=== PATIENT | male | born 1940 | race Caucasian/White ===

== ENCOUNTER 2023-11-19 09:02 | Emergency (ER) | payer MEDICARE, MEDICAID ==
[~2023-11-19] VITALS: Ht 160 cm; Wt 77.0 kg
[2023-11-19 09:13] VITALS: O2SAT 100
[2023-11-19 09:27] VITALS: BP 134/100; PULSE 84; RESP 16; TEMP 98; O2SAT 100
[2023-11-19 10:23] LABS: BASOPHILS % 0.8 % (0.0-2.0); EOSINOPHILS % 2.6 % (0.0-5.0); HEMATOCRIT. 43.9 % (42.0-52.0); HEMOGLOBIN. 14.7 g/dL (14.0-18.0); LYMPHOCYTES % 26.7 % (20.0-50.0); MEAN CORPUSCULAR HGB CONC 33.4 g/dL (31.0-37.0); MEAN CORPUSCULAR VOLUME 89.8 fL (80.0-94.0); MEAN PLATELET VOLUME 8.8 fl (7.4-10.4); MONOCYTES % 8.8 % (2.0-8.0); NEUTROPHILS % 61.1 % (40.0-76.0); PLATELET 243 x1000/uL (130-400); RED BLOOD CELL COUNT 4.89 mill/uL (4.7-6.1); WHITE BLOOD COUNT 7.9 x1000/uL (4.5-11.0)
[2023-11-19 10:38] LABS: CHLORIDE 108 mEq/L (98-107); POTASSIUM 3.8 mEq/L (3.5-5.1); SODIUM 142 mEq/L (136-145)
[2023-11-19 10:39] LABS: CALCIUM 9.5 mg/dL (8.7-10.4); CARBON DIOXIDE 26 mEq/L (21-32)
[2023-11-19 10:44] LABS: CREATININE 0.9 mg/dL (0.6-1.3); GLUCOSE 96 mg/dL (70-105); UREA NITROGEN BLOOD 14 mg/dL (9-23)
[2023-11-19 12:15] LABS: CLARITY URINE CLEAR (CLEAR); COLOR URINE RED (YELLOW); GLUCOSE URINE NEGATIVE (NEGATIVE); KETONES URINE NEGATIVE (NEGATIVE); LEUKOCYTE ESTERASE URINE NEGATIVE (NEGATIVE); NITRITE URINE NEGATIVE (NEGATIVE); OCCULT BLOOD URINE 3+ (NEGATIVE); PROTEIN URINE NEGATIVE (NEGATIVE); SPECIFIC GRAVITY URINE 1.009 (1.005-1.030); UROBILINOGEN URINE 0.2 E.U./dL (0.2-1.0)
[2023-11-19 12:34] LABS: RBC URINE TNTC /hpf (0-2); SQUAMOUS EPITHELIAL CELL URINE RARE /lpf (RARE/1+); WBC URINE 0-2 /hpf (0-2)
[2023-11-19 12:35] LABS: BACTERIA URINE TRACE
== END 2023-11-19 21:29 | disposition home or self-care (01) ==
LOC: ER 09:02
DX: R31.9 Hematuria, unspecified (principal); I10 Essential (primary) hypertension; E78.00 Pure hypercholesterolemia, unspecified; E11.9 Type 2 diabetes mellitus without complications
CPT/HCPCS: 36415; 80048; 81003; 85025; 99283

== ENCOUNTER 2024-06-22 09:03 | Emergency (ER) | payer MEDICARE, MEDICAID ==
[~2024-06-22] VITALS: Ht 167.6 cm; Wt 79.5 kg
[2024-06-22 09:06] VITALS: O2SAT 100
[2024-06-22 09:37] VITALS: TEMP 36.8; O2SAT 100
[2024-06-22 10:29] VITALS: BP 160/64; PULSE 68; RESP 14
[2024-06-22] MEDS: HYDROCODONE/ACETAMINOPHEN 5/325MG TABLET PO ONE (10:29)
[2024-06-22] MEDS ORDERED: IBUP-2029 MT (12:39)
== END 2024-06-22 12:49 | disposition home or self-care (01) ==
LOC: ER 09:03
DX: S40.012A Contusion of left shoulder, initial encounter (principal); E11.9 Type 2 diabetes mellitus without complications; E78.00 Pure hypercholesterolemia, unspecified; I10 Essential (primary) hypertension; Z79.899 Other long term (current) drug therapy; Z96.659 Presence of unspecified artificial knee joint; W19.XXXA Unspecified fall, initial encounter; Y93.89 Activity, other specified; Y92.89 Other specified places as the place of occurrence of the external cause; Y99.8 Other external cause status
CPT/HCPCS: 73030; 99283